=== PATIENT | male | born 1945 | race Caucasian/White ===

== ENCOUNTER → 2019-04-15 09:26 | Outpatient (CLI) | payer MEDICARE, SELFPAY ==
--- NOTE | 2019-04-15 09:37 | MR_ITS ---
PROCEDURE: MR HEAD/BRAIN WO/W CON CLINICAL INDICATION: VERTIGO Vertigo, dizziness, recent head injury COMPARISON: No exams were available for comparison TECHNIQUE: Routine multiplanar multi echo sequences are performed without and with gadolinium enhancement. FINDINGS: No midline shift, mass effect, hydrocephalus, or intracranial hemorrhage is evident. There is a small rounded area of restricted diffusion in the medial aspect of the right basal ganglia consistent with an area of acute lacunar. There are scattered periventricular and subcortical T2 white matter hyperintensities consistent with ischemic gliotic change from microvascular disease. No enhancing lesions are evident. The cerebellopontine angle, cerebellum, and brainstem are unremarkable. The pituitary, optic chiasm, corpus callosum, and craniocervical junction have an unremarkable appearance. There is moderate mucosal thickening of the maxillary sinuses bilaterally in of the ethmoid sinuses. No mastoid effusion is evident. The right maxillary sinus has a somewhat hypoplastic appearance and may be better evaluated with CT. IMPRESSION: 1. Acute lacunar infarction of the medial aspect of the right basal ganglia at the globus pallidus. 2. Generalized periventricular ischemic gliotic changes. 3. Paranasal sinus disease Dictated by: Gurjit Holden MD 04/16/2019 07:23 Electronically signed by Gurjit Holden MD in [place] 04/16/2019 07:23
--- NOTE | 2019-04-15 10:53 | HMH.ITSHM ---
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 []MECLIZINE
--- NOTE | 2019-04-15 11:00 | CA_ITS ---
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: CT Laterality: Bilateral Study Quality: Good Indications: dizziness Doppler Spectral Velocity Analysis ECA (R) 98.70/ cm/s ECA (L) 80.50/ cm/s dICA (R) 82.60/18.70 cm/s dICA (L) 84.90/28.40 cm/s Aniya (R) 56.80/17.20 cm/s Aniya (L) 80.00/18.20 cm/s pICA (R) 40.90/12.90 cm/s pICA (L) 59.60/20.40 cm/s dCCA (R) 76.70/14.50 cm/s dCCA (L) 64.00/18.70 cm/s pCCA (R) 105.00/14.90 cm/s pCCA (L) 81.10/21.00 cm/s Vert (R) 43.40/ cm/s Vert (L) 46.90/ cm/s ICA/CCA 1.08 ICA/CCA 1.33 Findings Duplex evaluation demonstrates stenosis of the right proximal internal carotid artery <20% with PSV <140 cm/sec, EDV <100 cm/sec, and IC/CC Ratio <4.0. Duplex evaluation demonstrates stenosis of the left proximal internal carotid artery <20% with PSV <140 cm/sec, EDV <100 cm/sec, and IC/CC Ratio <4.0. Duplex evaluation demonstrates antegrade flow of the bilateral Vertebral Arteries. Conclusion Duplex evaluation demonstrates stenosis of the right proximal internal carotid artery <20% Duplex evaluation demonstrates stenosis of the left proximal internal carotid artery <20% Duplex evaluation demonstrates antegrade flow of the bilateral Vertebral Arteries. Electronically signed by : Gurjit Holden MD 04/16/2019 16:57:24
== END ==
PROVIDERS: PCP Family Medicine; Visit Provider Family Medicine
DX: R42 Dizziness and giddiness (principal)
CPT/HCPCS: 70553; 93880; A9576

== ENCOUNTER → 2019-07-12 07:44 | Outpatient (CLI) | payer MEDICARE, SELFPAY ==
--- NOTE | 2019-07-12 07:47 | CA_ITS ---
APPROVED REPORT EXAM: Comprehensive 2D, Doppler, and color-flow Echocardiogram Quilt Maker: Arelis Landa RT(R) Ht: 5 ft 11 in Wt: 214lbs BSA: 2.17 BP: 130/80 mmHg Indications: CVA 2D Dimensions LVOT 1.85 cm (M/F) 1.5-2.5 M-Mode Dimensions RVDd 2.93 cm (0.9-2.6) LVDd 5.46 cm (3.5-5.7) LVDs 3.57 cm (3.5-5.7) IVSd 1.08 cm (0.6-1.1) PWd 0.84 cm (0.6-1.1) EF (Teich) 63.20% FS 34.60% EDV (Teich) 145.00 mL ESV (Teich) 53.30 mL LV Diastology E/A Ratio 0.81 Mitral Valve MV A Velocity 55.00 (40-130 cm/s) Left Ventricle Left atrium is mildly enlarged, left ventricle is normal size, mild concentric left ventricular hypertrophy, visually estimated ejection fraction 55% with no regional wall motion abnormality. Grade 1 diastolic dysfunction seen without tissue Doppler evidence of raise left atrial pressure. Right Ventricle Right atrium and right ventricular normal size and contractility. Aortic Valve Aortic valve is minimally thickened and fibrosed, there is no aortic stenosis or aortic insufficiency. Mitral Valve Mitral valve is grossly normal, there is mild mitral regurgitation. Tricuspid Valve Tricuspid valve is grossly normal, there is mild tricuspid regurgitation. Tricuspid regurgitation jet velocity is inadequate for calculation of the right ventricular systolic pressure. Pulmonic Valve Pulmonic valve is poorly visualized. Great Vessels Aortic root is normal size. Pericardium No significant pericardial effusion noted. Conclusion 1. Mildly enlarged left atrium, normal left ventricular size, mild concentric left ventricular hypertrophy, visually estimated ejection fraction 55% with no regional wall motion abnormality, grade 1 diastolic dysfunction seen without tissue Doppler evidence of raise left atrial pressure. 2. Mild mitral and tricuspid regurgitation. 3. No significant pericardial effusion noted. Electronically signed by : Antelmo Somers, 07/14/2019 06:34:54
== END ==
PROVIDERS: PCP Family Medicine; Visit Provider Psychiatry & Neurology Neurology
DX: I63.89 Other cerebral infarction (principal)
CPT/HCPCS: 93306

== ENCOUNTER → 2019-11-09 14:27 | Outpatient (CLI) | payer MEDICARE, SELFPAY ==
--- NOTE | 2019-11-09 14:35 | XR_ITS ---
PROCEDURE: XR HIP LT 2-3V W/PELVIS CLINICAL INDICATION: CONTUSION ON PELVIS,CONTUSION ON LT HIP Pain following injury COMPARISON: No exams were available for comparison FINDINGS: There is a faint lucency through the mid aspect of the acetabulum which could represent a nondisplaced fracture. CT may confirm. There are mild osteoarthritic changes the left hip. There is an 8 mm lucency at the proximal shaft of the femur nonspecific. This is best seen on the abduction view. IMPRESSION: Possible nondisplaced fracture of the acetabulum. Consider CT further evaluation. Dictated by: Gurjit Holden MD 11/09/2019 15:41 Electronically signed by Gurjit Holden MD in [place] 11/09/2019 15:41
--- NOTE | 2019-11-09 14:35 | XR_ITS ---
PROCEDURE: XR LUMBAR SPINE MIN 4V CLINICAL INDICATION: CONTUSION OF PELVIS,LT HIP CONTUSION Low back pain following injury COMPARISON: XR HIP LT 2-3V W/PELVIS from 11/09/2019 FINDINGS: There is normal alignment. No acute fracture or dislocation. No lytic or blastic change. There is minimal dextroscoliosis. Multilevel degenerative disc disease is present T11 to L3. There is slight loss of height anteriorly of T12 and L1. This however is age indeterminate. If pain persists then MRI may provide further evaluation to determine if this is acute chronic. There are endplate osteophytes at this level and no obvious cortical disruption is apparent. Facet arthritic changes are noted at L5-S1 IMPRESSION: Degenerative changes. No definite acute finding. Dictated by: Gurjit Holden MD 11/09/2019 15:39 Electronically signed by Gurjit Holden MD in [place] 11/09/2019 15:39
--- NOTE | 2019-11-09 15:52 | CT_ITS ---
PROCEDURE: CT HIP LT WO CON CLINICAL HISTORY: CONTUSION OF LEFT HIP Posttraumatic pain, possible fracture noted on plain film COMPARISON: XR HIP LT 2-3V W/PELVIS from 11/09/2019 TECHNIQUE: Axial images obtained with sagittal and coronal reformats. All CT scans at the facility use one or more dose reduction, viz: automated exposure control, ma/kV adjustment per patient size (including targeted exams where dose is matched to indication, i.e. head), or iterative reconstruction technique. FINDINGS: No definite fracture or dislocation. The lucency noted on the plain film is felt to have been caused by small ridge/small osteophyte within the acetabular area. There is generalized vascular calcification. No lytic or blastic lesions evident. There is mild hypertrophic change along the ischial tuberosity. There is a small left inguinal hernia containing fat. There is some mild edema of the of the soft tissues about the hip. There is diverticulosis of the sigmoid colon. There is some minimal cortical regularity of the linea aspera nonspecific IMPRESSION: 1. No acute fracture. 2. Mild osteoarthritic change. Dictated by: Gurjit Holden MD 11/09/2019 16:29 Electronically signed by Gurjit Holden MD in [place] 11/09/2019 16:29
== END ==
PROVIDERS: PCP Family Medicine; Visit Provider Family Medicine
DX: S30.0XXA Contusion of lower back and pelvis, initial encounter (principal); S70.01XA Contusion of right hip, initial encounter
CPT/HCPCS: 72110; 73502; 73700

== ENCOUNTER → 2022-07-23 11:03 | Outpatient (POV) | payer MEDICARE, SELFPAY | PROVIDERS: Visit Provider Dermatology | DX: Z00.00 Encounter for general adult medical examination without abnormal findings (principal) ==